=== PATIENT | male | born 1945 | race Caucasian/White ===

== ENCOUNTER 2024-05-18 12:25 | Inpatient (IN) | payer MEDICARE, BC ==
[2024-05-18] MEDS: Sodium Chloride 0.9% 1,000 ML IV STA ×2 (13:23→17:34)
[2024-05-18] MEDS: Sodium Chloride 0.9% 10 ML Syringe FLUSH PRN (13:44)
[2024-05-18] MEDS: Lidocaine 2% with EPINEPHrine 1:100,000 20 ML MDV INJECT ONE (13:44)
[2024-05-18 13:45] LABS: BASOPHILS PERCENT AUTO 0.5 % (0.0-1.0); EOSINOPHILS ABSOLUTE AUTO 0.1 K/mm3 (0.0-0.4); EOSINOPHILS PERCENT AUTO 1.3 % (0.0-6.0); HEMATOCRIT 43.8 % (42.0-52.0); HEMOGLOBIN 15.1 gm/dl (14.0-18.0); IMMATURE GRAN ABSOLUTE AUTO 0.09 K/mm3 (0.00-0.05); IMMATURE GRAN PERCENT AUTO 1.2 % (0.0-0.4); LYMPHOCYTES ABSOLUTE AUTO 1.5 K/mm3 (1.0-4.8); MEAN CORPUSCULAR HEMOGLOBIN 31.7 pg (28.0-32.0); MEAN CORPUSCULAR HGB CONC 34.5 g/dl (32.0-36.0); MEAN CORPUSCULAR VOLUME 91.8 fl (83.0-99.0); MEAN PLATELET VOLUME 8.7 fl (9.4-12.4); MONOCYTES ABSOLUTE AUTO 0.5 K/mm3 (0.0-0.8); MONOCYTES PERCENT AUTO 6.3 % (0.0-8.0); NEUTROPHILS ABSOLUTE AUTO 5.3 K/mm3 (1.8-7.7); NEUTROPHILS PERCENT AUTO 70.7 % (41.0-71.0); PLATELET COUNT,PLT 228 K/mm3 (150-400); RED BLOOD CELL COUNT 4.77 M/mm3 (4.52-5.90); WHITE BLOOD CELL COUNT,WBC 7.56 K/mm3 (3.9-11.3)
[2024-05-18 14:05] LABS: A/G RATIO 1.1 (1-2); ALBUMIN 3.7 g/dl (3.4-5.0); ANION GAP 17.8 (5-15); BILIRUBIN TOTAL 0.7 mg/dL (0.2-1.0); BUN/CREATININE RATIO 13.3 (14-18); CALCIUM 9.1 mg/dL (8.5-10.1); CREATININE 0.9 mg/dL (0.7-1.3); EST CRCL DRUG DOSING (CG) 63.01 mL/min; POTASSIUM,K 3.8 mEq/L (3.5-5.1); PROTEIN TOTAL,TP 7.2 g/dl (6.4-8.2)
[2024-05-18] MEDS: LORazepam 2 MG/ML SDV IVPUSH ONE (15:15)
[2024-05-18] MEDS: Diltiazem 25 MG/5 ML SDV IVPUSH ONE (15:17)
[2024-05-18 15:38] LABS: APPEARANCE,URINE CLEAR (Clear); BILIRUBIN,URINE NEGATIVE (Negative); COLOR,URINE YELLOW (Yellow); GLUCOSE,URINE NEGATIVE (Negative); KETONES,URINE NEGATIVE (Negative); LEUKOCYTE ESTERASE,URINE TRACE (Negative); NITRITE,URINE NEGATIVE (Negative); OCCULT BLOOD,URINE TRACE-LYSED (Negative); PROTEIN,URINE NEGATIVE (Negative)
[2024-05-18 15:58] LABS: RBC,URINE 0-5 /hpf (0-5)
[2024-05-18 15:59] LABS: BACTERIA,URINE FEW /hpf (FEW); MUCUS,URINE FEW /hpf (FEW); SQUAMOUS EPITHELIAL CELLS,UR 0-5 /hpf (0-5); WBC,URINE 0-5 /hpf (0-5)
[2024-05-18] MEDS ORDERED: Acetaminophen 325 MG Tab PO PRN (17:31)
[2024-05-18] MEDS ORDERED: Morphine 2 MG/ML SYRINGE IVPUSH PRN (17:31)
[2024-05-18] MEDS: Diphtheria,Pertussis(Acell),Tetanus Vaccine 0.5 ML Syringe IM ONE (17:34)
[2024-05-18 17:35] LABS: TSH 1.069 uIU/mL (0.358-3.74)
[2024-05-18] MEDS: Labetalol 100 MG/20 ML MDV IVPUSH ONE (20:19)
[2024-05-18] MEDS: Hydrochlorothiazide 25 MG Tab PO SCH (20:19)
[2024-05-18] MEDS: Ampicillin/Sulbactam Na 3 GM in Sodium Chloride 0.9% 100 ML IV SCH (20:19)
[2024-05-18] MEDS: LORazepam 2 MG/ML SDV IV PRN (21:15)
[2024-05-19 05:30] LABS: BASOPHILS PERCENT AUTO 0.3 % (0.0-1.0); EOSINOPHILS ABSOLUTE AUTO 0.1 K/mm3 (0.0-0.4); EOSINOPHILS PERCENT AUTO 0.4 % (0.0-6.0); HEMATOCRIT 38.5 % (42.0-52.0); IMMATURE GRAN ABSOLUTE AUTO 0.04 K/mm3 (0.00-0.05); IMMATURE GRAN PERCENT AUTO 0.3 % (0.0-0.4); LYMPHOCYTES ABSOLUTE AUTO 1.2 K/mm3 (1.0-4.8); LYMPHOCYTES PERCENT AUTO 10.5 % (24.0-44.0); MEAN CORPUSCULAR HEMOGLOBIN 32.7 pg (28.0-32.0); MEAN CORPUSCULAR HGB CONC 35.1 g/dl (32.0-36.0); MEAN CORPUSCULAR VOLUME 93.2 fl (83.0-99.0); MEAN PLATELET VOLUME 9.3 fl (9.4-12.4); MONOCYTES ABSOLUTE AUTO 1.2 K/mm3 (0.0-0.8); MONOCYTES PERCENT AUTO 10.2 % (0.0-8.0); NEUTROPHILS ABSOLUTE AUTO 9.1 K/mm3 (1.8-7.7); NEUTROPHILS PERCENT AUTO 78.3 % (41.0-71.0); PLATELET COUNT,PLT 222 K/mm3 (150-400); RED BLOOD CELL COUNT 4.13 M/mm3 (4.52-5.90); WHITE BLOOD CELL COUNT,WBC 11.67 K/mm3 (3.9-11.3)
[2024-05-19 05:45] LABS: HEMOGLOBIN 13.5 gm/dl (14.0-18.0)
[2024-05-19 05:51] LABS: ALBUMIN 3.3 g/dl (3.4-5.0); CALCIUM 8.6 mg/dL (8.5-10.1); CREATININE 1.1 mg/dL (0.7-1.3); EST CRCL DRUG DOSING (CG) 51.56 mL/min; PROTEIN TOTAL,TP 6.6 g/dl (6.4-8.2)
[2024-05-19 06:02] LABS: BILIRUBIN TOTAL 1.7 mg/dL (0.2-1.0)
[2024-05-19] MEDS: Thiamine 100 MG Tab PO SCH (09:05)
[2024-05-19] MEDS: Sodium Chloride 0.9% 1,000 ML ONE (09:05)
[2024-05-19] MEDS: Folic Acid 1 MG Tab PO SCH (09:05)
[2024-05-19] MEDS: oxyCODONE 5 MG Tab PO PRN (09:05)
[2024-05-19] MEDS: LORazepam 2 MG/ML SDV IV PRN (09:05)
[2024-05-19] MEDS: Multivitamin Tab PO SCH (09:05)
[2024-05-19] MEDS: Triamcinolone Acetonide 0.5% Oint 15 GM Tube TOP SCH (11:10)
[2024-05-19] MEDS: Nystatin Topical Powder 15 GM Bottle TOP SCH (21:45)
[2024-05-20 05:24] LABS: BASOPHILS PERCENT AUTO 0.2 % (0.0-1.0); EOSINOPHILS ABSOLUTE AUTO 0.1 K/mm3 (0.0-0.4); EOSINOPHILS PERCENT AUTO 0.6 % (0.0-6.0); HEMATOCRIT 36.2 % (42.0-52.0); HEMOGLOBIN 12.7 gm/dl (14.0-18.0); IMMATURE GRAN ABSOLUTE AUTO 0.04 K/mm3 (0.00-0.05); IMMATURE GRAN PERCENT AUTO 0.5 % (0.0-0.4); LYMPHOCYTES ABSOLUTE AUTO 1.2 K/mm3 (1.0-4.8); LYMPHOCYTES PERCENT AUTO 13.5 % (24.0-44.0); MEAN CORPUSCULAR HGB CONC 35.1 g/dl (32.0-36.0); MEAN PLATELET VOLUME 9.2 fl (9.4-12.4); MONOCYTES ABSOLUTE AUTO 0.8 K/mm3 (0.0-0.8); MONOCYTES PERCENT AUTO 9.4 % (0.0-8.0); NEUTROPHILS ABSOLUTE AUTO 6.5 K/mm3 (1.8-7.7); NEUTROPHILS PERCENT AUTO 75.8 % (41.0-71.0); PLATELET COUNT,PLT 177 K/mm3 (150-400); RED BLOOD CELL COUNT 3.85 M/mm3 (4.52-5.90); WHITE BLOOD CELL COUNT,WBC 8.53 K/mm3 (3.9-11.3)
[2024-05-20 05:47] LABS: A/G RATIO 0.9 (1-2); ANION GAP 12.7 (5-15); BILIRUBIN TOTAL 1.5 mg/dL (0.2-1.0); BUN/CREATININE RATIO 12.9 (14-18); CALCIUM 9.1 mg/dL (8.5-10.1); CREATININE 0.7 mg/dL (0.7-1.3); EST CRCL DRUG DOSING (CG) 81.02 mL/min; PROTEIN TOTAL,TP 6.3 g/dl (6.4-8.2)
[2024-05-20 06:11] LABS: POTASSIUM,K 3.7 mEq/L (3.5-5.1)
[2024-05-20] MEDS: Folic Acid 50 MG/10 ML MDV IV SCH (09:10)
[2024-05-20] MEDS: Thiamine 100 MG in Sodium Chloride 0.9% 100 ML IV ONE (10:00)
[2024-05-20] MEDS: Enoxaparin 40 MG/0.4 ML Syringe SUBCUT ONE (10:15)
[2024-05-20] MEDS: PHENobarbitaL sodium 260 MG in Sodium Chloride 0.9% 100 ML IV ONE ×2 (13:25→13:27)
[2024-05-20] MEDS: PHENobarbital Sodium 65 MG/ML SDV IVPUSH ONE (18:16)
[2024-05-20] MEDS ORDERED: PHENobarbitaL sodium 260 MG in Sodium Chloride 0.9% 100 ML IV ONE (19:30)
[2024-05-20] MEDS: Dextrose 5%-0.45% NaCl 1,000 ML IV SCH (23:56)
[2024-05-21 05:28] LABS: BASOPHILS PERCENT AUTO 0.1 % (0.0-1.0); EOSINOPHILS PERCENT AUTO 0.5 % (0.0-6.0); HEMATOCRIT 34.1 % (42.0-52.0); HEMOGLOBIN 11.8 gm/dl (14.0-18.0); IMMATURE GRAN ABSOLUTE AUTO 0.04 K/mm3 (0.00-0.05); IMMATURE GRAN PERCENT AUTO 0.5 % (0.0-0.4); LYMPHOCYTES PERCENT AUTO 13.2 % (24.0-44.0); MEAN CORPUSCULAR HEMOGLOBIN 32.2 pg (28.0-32.0); MEAN CORPUSCULAR HGB CONC 34.6 g/dl (32.0-36.0); MEAN CORPUSCULAR VOLUME 93.2 fl (83.0-99.0); MEAN PLATELET VOLUME 9.2 fl (9.4-12.4); MONOCYTES ABSOLUTE AUTO 0.9 K/mm3 (0.0-0.8); MONOCYTES PERCENT AUTO 11.3 % (0.0-8.0); NEUTROPHILS ABSOLUTE AUTO 5.6 K/mm3 (1.8-7.7); NEUTROPHILS PERCENT AUTO 74.4 % (41.0-71.0); PLATELET COUNT,PLT 164 K/mm3 (150-400); RED BLOOD CELL COUNT 3.66 M/mm3 (4.52-5.90); WHITE BLOOD CELL COUNT,WBC 7.49 K/mm3 (3.9-11.3)
[2024-05-21 05:46] LABS: A/G RATIO 0.8 (1-2); ALBUMIN 2.6 g/dl (3.4-5.0); ANION GAP 11.3 (5-15); BILIRUBIN TOTAL 1.3 mg/dL (0.2-1.0); BUN/CREATININE RATIO 11.3 (14-18); CALCIUM 8.3 mg/dL (8.5-10.1); CREATININE 0.8 mg/dL (0.7-1.3); EST CRCL DRUG DOSING (CG) 70.89 mL/min; POTASSIUM,K 3.3 mEq/L (3.5-5.1); PROTEIN TOTAL,TP 5.8 g/dl (6.4-8.2)
[2024-05-21] MEDS: Nystatin Crm 30 GM Tube TOP SCH (08:26)
[2024-05-21] MEDS: Potassium Chloride 10 MEQ in Premix Bag 1 BAG IV SCH (08:27)
[2024-05-21] MEDS: Metoprolol Tartrate 5 MG/5 ML SDV IVPUSH PRN (09:45)
[2024-05-21] MEDS: Enoxaparin 40 MG/0.4 ML Syringe SUBCUT SCH (11:54)
[2024-05-21] MEDS: OLANZapine 5 MG Tab PO SCH (20:18)
[2024-05-21] MEDS ORDERED: Sennosides/Docusate Sodium 50-8.6 MG Tab PO PRN (21:00)
[2024-05-22 07:11] LABS: A/G RATIO 0.8 (1-2); ALBUMIN 2.6 g/dl (3.4-5.0); ANION GAP 12.6 (5-15); BILIRUBIN TOTAL 1.3 mg/dL (0.2-1.0); BUN/CREATININE RATIO 11.4 (14-18); CALCIUM 8.3 mg/dL (8.5-10.1); CREATININE 0.7 mg/dL (0.7-1.3); EST CRCL DRUG DOSING (CG) 81.02 mL/min; MAGNESIUM 1.9 mg/dL (1.8-2.4); POTASSIUM,K 3.6 mEq/L (3.5-5.1); PROTEIN TOTAL,TP 5.9 g/dl (6.4-8.2)
[2024-05-22] MEDS ORDERED: Naloxone 0.4 MG/ML SDV IVPUSH PRN (07:34)
[2024-05-22] MEDS: Potassium Chloride 10 MEQ in Premix Bag 1 BAG IV SCH (08:04)
[2024-05-22] MEDS: Enoxaparin 40 MG/0.4 ML Syringe SUBCUT SCH (08:04)
[2024-05-22] MEDS: Hydrochlorothiazide 25 MG Tab PO SCH (08:18)
[2024-05-22] MEDS: Morphine 2 MG/ML SYRINGE IVPUSH PRN (08:22)
[2024-05-22] MEDS: Thiamine 200 MG/2 ML MDV IVPUSH ONE (10:08)
[2024-05-22] MEDS: LORazepam 2 MG/ML SDV IVPUSH ONE (21:28)
[2024-05-23] MEDS: LORazepam 2 MG/ML SDV IVPUSH ONE (02:20)
[2024-05-23 07:09] LABS: A/G RATIO 0.7 (1-2); ALBUMIN 2.5 g/dl (3.4-5.0); ANION GAP 12.2 (5-15); BILIRUBIN TOTAL 1.1 mg/dL (0.2-1.0); BUN/CREATININE RATIO 15.7 (14-18); CALCIUM 8.6 mg/dL (8.5-10.1); CREATININE 0.7 mg/dL (0.7-1.3); EST CRCL DRUG DOSING (CG) 81.02 mL/min; PHOSPHORUS 3.2 mg/dL (2.6-4.7); POTASSIUM,K 4.2 mEq/L (3.5-5.1)
[2024-05-23] MEDS: Lactated Ringers 1,000 ML IV ONE (14:34)
[2024-05-23] MEDS: Morphine 2 MG/ML SYRINGE IVPUSH PRN (20:54)
[2024-05-24 06:31] LABS: BASOPHILS PERCENT AUTO 0.4 % (0.0-1.0); EOSINOPHILS ABSOLUTE AUTO 0.2 K/mm3 (0.0-0.4); EOSINOPHILS PERCENT AUTO 2.8 % (0.0-6.0); HEMATOCRIT 31.8 % (42.0-52.0); HEMOGLOBIN 11.2 gm/dl (14.0-18.0); IMMATURE GRAN ABSOLUTE AUTO 0.05 K/mm3 (0.00-0.05); IMMATURE GRAN PERCENT AUTO 0.7 % (0.0-0.4); MEAN CORPUSCULAR HEMOGLOBIN 32.7 pg (28.0-32.0); MEAN CORPUSCULAR HGB CONC 35.2 g/dl (32.0-36.0); MEAN PLATELET VOLUME 9.2 fl (9.4-12.4); MONOCYTES ABSOLUTE AUTO 0.9 K/mm3 (0.0-0.8); NEUTROPHILS ABSOLUTE AUTO 4.7 K/mm3 (1.8-7.7); NEUTROPHILS PERCENT AUTO 69.1 % (41.0-71.0); PLATELET COUNT,PLT 187 K/mm3 (150-400); RED BLOOD CELL COUNT 3.42 M/mm3 (4.52-5.90); WHITE BLOOD CELL COUNT,WBC 6.78 K/mm3 (3.9-11.3)
[2024-05-24 06:57] LABS: A/G RATIO 0.7 (1-2); ALBUMIN 2.4 g/dl (3.4-5.0); ANION GAP 14.8 (5-15); BILIRUBIN TOTAL 1.4 mg/dL (0.2-1.0); BUN/CREATININE RATIO 14.3 (14-18); C-REACTIVE PROTEIN 15.58 mg/dL (<0.30); CALCIUM 8.5 mg/dL (8.5-10.1); CREATININE 0.7 mg/dL (0.7-1.3); EST CRCL DRUG DOSING (CG) 81.02 mL/min; POTASSIUM,K 3.8 mEq/L (3.5-5.1)
[2024-05-24] MEDS: Potassium Chloride 10 MEQ in Premix Bag 1 BAG IV SCH (09:50)
[2024-05-24] MEDS ORDERED: hydrALAZINE 20 MG/ML SDV IVPUSH PRN (16:07)
[2024-05-24] MEDS: Labetalol 100 MG/20 ML MDV IVPUSH PRN (16:18)
[2024-05-25 05:08] LABS: A/G RATIO 0.7 (1-2); ALBUMIN 2.4 g/dl (3.4-5.0); ANION GAP 14.8 (5-15); BILIRUBIN TOTAL 0.9 mg/dL (0.2-1.0); BUN/CREATININE RATIO 11.4 (14-18); C-REACTIVE PROTEIN 12.17 mg/dL (<0.30); CALCIUM 8.5 mg/dL (8.5-10.1); CREATININE 0.7 mg/dL (0.7-1.3); EST CRCL DRUG DOSING (CG) 81.02 mL/min; POTASSIUM,K 3.8 mEq/L (3.5-5.1); PROTEIN TOTAL,TP 5.9 g/dl (6.4-8.2)
[2024-05-25] MEDS: Potassium Chloride 20 MEQ Tab.ER PO ONE ×2 (10:09→11:29)
[2024-05-25] MEDS: Folic Acid 1 MG Tab PO SCH (20:41)
[2024-05-25] MEDS: Thiamine 100 MG Tab PO SCH (20:41)
[2024-05-29 15:46] LABS: VITAMIN B1, WHOLE BLOOD 148 nmol/L (70-180)
[2024-05-30] MEDS ORDERED: Acetaminophen 325 MG Tab PO PRN (08:16)
== END 2024-05-30 15:10 | disposition home or self-care (01) | DRG 988 ==
LOC: JD.ED 12:25 → JD.MS 17:32 → JD.ICU 17:54 → OBSVTOIN 18:23
PROVIDERS: ADMIT Family Medicine; ATTEND Student in an Organized Health Care Education/Training Program
PROC: 0JQ10ZZ Repair Face Subcutaneous Tissue and Fascia, Open Approach (ICD-10-PCS; principal; 2024-05-18)
PROC: 0HQ1XZZ Repair Face Skin, External Approach (ICD-10-PCS; 2024-05-18)
DX: F10.921 Alcohol use, unspecified with intoxication delirium (principal); S09.90XA Unspecified injury of head, initial encounter; R00.0 Tachycardia, unspecified; S02.85XA Fracture of orbit, unspecified, initial encounter for closed fracture; I10 Essential (primary) hypertension; E07.9 Disorder of thyroid, unspecified; F10.920 Alcohol use, unspecified with intoxication, uncomplicated; F10.931 Alcohol use, unspecified with withdrawal delirium; S01.81XA Laceration without foreign body of other part of head, initial encounter; I16.0 Hypertensive urgency; W19.XXXA Unspecified fall, initial encounter; E04.1 Nontoxic single thyroid nodule; G31.2 Degeneration of nervous system due to alcohol; G31.9 Degenerative disease of nervous system, unspecified; F32.89 Other specified depressive episodes; B35.1 Tinea unguium
CPT/HCPCS: 36415; 70450; 70486; 71045; 80053; 80307; 81001; 83735; 84443; 84484; 85025; 87086; 90715; 93005 ×2; J2060; J3490 ×2; J7030 ×2; 12016; 73130-26-RT; 73130-RT; 82140; 84100; 84425; 86140; 87040; 87428-QW; 92610-GN; 93010; 97110-GP; 97112-GP; 97116-GP; 97161-GP; 97530-GP; 99223; 99232; 99233; 99239; 99284; A9270-GY; J0295; J1650; J1920; J2270; J2560; J3411; J3475; J3480; J7120; J7799; U0002